=== PATIENT | male | born 2000 | race Native Hawaiian/Other Pacific Islander ===

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

== ENCOUNTER 2018-08-24 08:52 | Outpatient (CLI) | payer BC | END 2018-08-24 19:47 | disposition home or self-care (01) | LOC: US 08:52 | DX: N50.812 Left testicular pain (principal) ==

== ENCOUNTER 2019-02-11 13:41 | Emergency (ER) | payer BC ==
[~2019-02-11] VITALS: Ht 167.6 cm; Wt 104.3 kg
[2019-02-11 13:53] VITALS: TEMP 97.9
[2019-02-11 15:24] VITALS: BP 128/66
== END 2019-02-11 15:24 | disposition home or self-care (01) ==
LOC: ED 13:41
PROC: 2W3CX1Z Immobilization of Right Lower Arm using Splint (ICD-10-PCS; principal; 2019-02-11)
DX: S63.91XA Sprain of unspecified part of right wrist and hand, initial encounter (principal); X50.3XXA Overexertion from repetitive movements, initial encounter
CPT/HCPCS: 99283; L3908